=== PATIENT | male | born 1980 | race Caucasian/White ===

== ENCOUNTER 2019-09-11 04:26 | Emergency (ER) | payer SELFPAY ==
[~2019-09-11] VITALS: Ht 172.7 cm; Wt 91.0 kg
[2019-09-11] MEDS ORDERED: ONDANSETRON HCL 4MG/2ML INJ IV STA (06:20)
[2019-09-11] MEDS ORDERED: MAGNESIUM/ALUMINUM HYDROXIDE/SIMETHICONE 30ML UDC PO STA (06:20)
[2019-09-11] MEDS ORDERED: VISCOUS LIDOCAINE 2% 15 ML UDC PO STA (06:20)
[2019-09-11] MEDS ORDERED: DICYCLOMINE 10 MG/5 ML ORAL SYR PO STA (06:20)
[2019-09-11] MEDS ORDERED: MORPHINE SULFATE 4 MG/ML CPJ (NOT FOR IM USE) IV STA (06:20)
[2019-09-11] MEDS ORDERED: FAMOTIDINE 20MG/2ML VIAL IV ONE (06:30)
[2019-09-11 06:57] LABS: BASOPHILS % 0.5 % (0.0-2.0); EOSINOPHILS % 0.9 % (0.0-5.0); HEMATOCRIT. 41.1 % (42.0-52.0); HEMOGLOBIN. 14.2 g/dL (14.0-18.0); LYMPHOCYTES % 9.4 % (20.0-50.0); MEAN CORPUSCULAR VOLUME 84.1 fL (80.0-94.0); MONOCYTES % 6.3 % (2.0-8.0); NEUTROPHILS % 82.9 % (40.0-76.0); PLATELET 266 x1000/uL (130-400); RED BLOOD CELL COUNT 4.89 mill/uL (4.7-6.1); RED CELL DISTRIBUTION WIDTH 13.3 % (11.6-14.6)
[2019-09-11 06:59] LABS: CHLORIDE 105 mEq/L (98-107); PROTHROMBIN TIME 10.5 sec (9.6-11.0)
[2019-09-11 07:40] VITALS: BP 149/92
== END 2019-09-11 08:28 | disposition home or self-care (01) ==
LOC: ER 04:26
DX: R10.9 Unspecified abdominal pain (principal)
CPT/HCPCS: 36415; 80053; 83690; 85025; 85610; 93005; 96374; 96375; 99284; J2270; J2405; J3490; Z7610